=== PATIENT | male | born 1990 | race African-American/Black ===

== ENCOUNTER 2025-02-04 03:03 | Emergency (ER) | payer MEDICAID ==
[~2025-02-04] VITALS: Ht 172.7 cm; Wt 82.0 kg
[2025-02-04] MEDS: METHYLPREDNISOLONE SOD SUCC 125MG/2ML (ACT-O-VIAL) IV NR (04:34)
[2025-02-04] MEDS: METHYLPREDNISOLONE 40MG/ML INJ IV ONE (04:36)
[2025-02-04] MEDS ORDERED: PRED5TAB48 MT (05:53)
[2025-02-04] MEDS ORDERED: ALBU18HF2 IH (05:53)
[2025-02-04 06:04] VITALS: PULSE 98; RESP 20; O2SAT 99
[2025-02-04] MEDS: IPRATROPIUM/ALBUTEROL 0.5-3(2.5)MG/3ML NEB HHN ONE (06:04)
[2025-02-04] MEDS: IPRATROPIUM/ALBUTEROL 0.5-3(2.5)MG/3ML NEB HHN NR (06:10)
[2025-02-04 06:28] VITALS: BP 122/61; PULSE 103; RESP 20; TEMP 37.1; O2SAT 100
== END 2025-02-04 06:35 | disposition home or self-care (01) ==
LOC: ER 03:03
DX: J45.901 Unspecified asthma with (acute) exacerbation (principal)
CPT/HCPCS: 71045; 94640; 96374; 99283; J2919; Z7610 ×2; 94070; 94664; 98960

== ENCOUNTER 2025-04-24 12:14 | Emergency (ER) | payer MEDICAID ==
[~2025-04-24] VITALS: Ht 172.7 cm; Wt 68.0 kg
[~2025-04-24 12:14] MED LIST: ALBU18HF2 IH; PRED5TAB48 MT
[2025-04-24 12:16] VITALS: O2SAT 98
[2025-04-24] MEDS ORDERED: IBUP-2030 MT (14:54)
[2025-04-24] MEDS ORDERED: ACET-2708 MT (14:54)
[2025-04-24 15:29] VITALS: BP 133/95; PULSE 78; RESP 16; TEMP 36.7; O2SAT 100
[2025-04-24] MEDS: KETOROLAC 30MG/ML VIAL IM ONE (15:29)
== END 2025-04-24 15:30 | disposition home or self-care (01) ==
LOC: ER 12:50
DX: S82.892A Other fracture of left lower leg, initial encounter for closed fracture (principal); Z79.899 Other long term (current) drug therapy; W18.30XA Fall on same level, unspecified, initial encounter; Y93.89 Activity, other specified; Y92.89 Other specified places as the place of occurrence of the external cause; Y99.8 Other external cause status
CPT/HCPCS: 73600; 73630; 29515; 96372; 99284; J1885; Z7610; A6449